=== PATIENT | male | born 1960 | race Caucasian/White ===

== ENCOUNTER 2016-07-27 06:36 | Day surgery (SDC) | payer OTHER, BC ==
[2016-07-16 11:55] VITALS: BMI 41.8
[2016-07-27] MEDS ORDERED: TETRACAINE 0.5% OPHTH SOLN 2 ML BOTTLE ONE (07:04)
[2016-07-27] MEDS ORDERED: BUPIVACAINE HCL/PF 0.5% (5MG/ML) 10 ML VIAL ONE (07:04)
[2016-07-27] MEDS ORDERED: POVIDONE-IODINE 5% OPHTHALMIC PREP 30 ML SOLUTION ONE (07:04)
[2016-07-27] MEDS ORDERED: LIDOCAINE 1%-EPI 1:100,000 30 ML MDV IJ ONE (07:04)
[2016-07-27] MEDS ORDERED: THROMBIN (BOVINE) 5,000 UNIT VIAL TP ONE (07:04)
[2016-07-27] MEDS ORDERED: BACITRACIN 3.5 GM OPTHALMIC OINT TUBE ONE (07:04)
[2016-07-27] MEDS ORDERED: SODIUM CHLORIDE 0.9% P/F 10 ML VIAL IJ ONE (07:16)
[2016-07-27] MEDS ORDERED: PROPOFOL 20 ML ONE ×6 (07:16→08:35)
[2016-07-27] MEDS ORDERED: ceFAZolin SODIUM 1 GM VIAL ONE (07:16)
[2016-07-27] MEDS ORDERED: MIDAZOLAM HCL 2 MG/2 ML SINGLE DOSE VIAL ONE (07:16)
[2016-07-27] MEDS ORDERED: DEXAMETHASONE SOD PHOSPHATE 4 MG/1 ML VIAL ONE ×2 (07:16→08:13)
[2016-07-27] MEDS ORDERED: ONDANSETRON 4 MG/2 ML VIAL ONE (07:16)
[2016-07-27] MEDS ORDERED: ACETAMINOPHEN 500 MG TABLET (FP) PO PRN (09:50)
[2016-07-27] MEDS ORDERED: ONDANSETRON 4 MG/2 ML VIAL IVPUSH PRN (09:51)
[2016-07-27] MEDS ORDERED: oxyCODONE HCL 5 MG TABLET PO PRN (09:52)
[2016-07-27] MEDS ORDERED: PROMETHAZINE HCL 25 MG/1 ML VIAL IVPUSH PRN (09:53)
[2016-07-27] MEDS ORDERED: LACTATED RINGERS SOLUTION 1,000 ML IV SCH (10:00)
[2016-07-27 10:25] VITALS: TEMP 97.9
[2016-07-27 10:43] VITALS: BP 136/88; PULSE 74
--- NOTE | 2016-07-27 13:20 | OP ---
DATE OF OPERATION: 07/27/2016 PREOPERATIVE DIAGNOSIS: Basal cell carcinoma, left lower lid, status post Mohs. POSTOPERATIVE DIAGNOSIS: Basal cell carcinoma, left lower lid, status post Mohs. PROCEDURE: 1. Debridement and tailoring of defect, left lower lid. 2. Skin-muscle advancement flap from left lower canthus and left lower lid to left medial canthus of left lower lid. SURGEON: Jas Null MD ANESTHESIA: LMA. COMPLICATONS: None. ESTIMATED BLOOD LOSS: 3 mL. OPERATION REPORT: Patient was brought to the operating room and placed on the operating room table. Vital signs were monitored by Anesthesia. Tetracaine was placed in both eyes. Patient was placed under LMA anesthesia due to his body habitus and an anesthetic , after which a time-out was performed. The wound was then measured to be 10 mm in a rhomboidal fashion in the medial canthus, left lower lid junction, just below the tear duct. However, he had quite a bit of sebaceous skin and it was felt that rotation of the sebaceous skin might result in a contraction and ectropion. Therefore, a horizontal skin-muscle flap was developed. This was developed by marking a subciliary incision across the eyelid into the lateral canthus. Patient was then given a 50/50 mixture of 2% Xylocaine with 1:100,000 epinephrine, 0.5% Marcaine, and this was injected throughout the left cheek and left lower lid out to the lateral canthus in the area of the marked rhomboidal rotation flap and skin-muscle flap, myocutaneous flap from the lateral canthus and left lower lid. The patient was prepped and draped in the usual sterile fashion, exposing both eyes. The wound was debrided and tailored as needed. Then, the subciliary incision was incised across the eyelid, extending out to the lateral canthus. A small amount of muscle was allowed to remain near the nasal end of the flap where it was going to be attached to the medial canthal tissues. The rest of it was a skin flap dissecting the orbicularis off of the skin. Hemostasis was achieved with a Toombs needle. Antibiotic irrigation was used throughout the case. The skin flap was elevated out into the lateral canthus until it could be advanced so that it would rest in the medial canthal defect and covering the defect of the basal cell incision without undue tension. It was then sutured into place with subcuticular 6-0 chromic sutures around the nasal end of the advanced flap inferiorly, nasally, and superiorly without any tension on the punctum or lid margin, which remained in good position. Then, the skin itself was closed with running interrupted 6-0 plain along the subciliary area. The medial end of the flap was interrupted with 6-0 plain and then inferolaterally, and the advancement flap was closed with interrupted running 6-0 plain. The cutaneous deformity was excised at the Burow triangle inferolaterally. This allowed complete closure without any tension on the eyelid margin and with good positioning. Bacitracin ointment was then placed in the eye and on all the sutures and the patient was taken to the recovery room in stable condition. JAS NULL M.D. [id number]
== END 2016-07-27 10:55 | disposition home or self-care (01) ==
LOC: FASU 06:36
PROVIDERS: ATTEND Ophthalmology
PROC: 0JX10ZC Transfer Face Subcutaneous Tissue and Fascia with Skin, Subcutaneous Tissue and Fascia, Open Approach (ICD-10-PCS; 2016-07-27)
PROC: 0JQ10ZZ Repair Face Subcutaneous Tissue and Fascia, Open Approach (ICD-10-PCS; principal; 2016-07-27 08:07)
DX: C44.119 Basal cell carcinoma of skin of left eyelid, including canthus (principal)
CPT/HCPCS: 94760